=== PATIENT | female | born 1990 | race Caucasian/White ===

== ENCOUNTER 2018-03-06 12:10 | Outpatient (CLI) | payer MEDICAID | END 2018-03-06 13:45 | disposition home or self-care (01) | LOC: OBT 12:10 → L-D 12:10 → OBT 13:45 | DX: O36.8330 Maternal care for abnormalities of the fetal heart rate or rhythm, third trimester, not applicable or unspecified (principal); O28.0 Abnormal hematological finding on antenatal screening of mother; Z3A.30 30 weeks gestation of pregnancy | CPT/HCPCS: 76818 ==

== ENCOUNTER 2018-03-09 09:33 | Outpatient (CLI) | payer MEDICAID | END 2018-03-09 11:07 | disposition home or self-care (01) | LOC: OBT 09:33 → L-D 09:33 → OBT 11:07 | DX: O28.8 Other abnormal findings on antenatal screening of mother (principal); Z3A.30 30 weeks gestation of pregnancy | CPT/HCPCS: 76818 ==

== ENCOUNTER 2018-04-21 23:47 | Outpatient (CLI) | payer MEDICAID ==
[2018-04-22 00:59] LABS: RUPTURE FETAL MEMBRANES NEGATIVE (NEGATIVE)
== END 2018-04-22 01:24 | disposition home or self-care (01) ==
LOC: OBT 23:47 → L-D 23:50
DX: O28.9 Unspecified abnormal findings on antenatal screening of mother (principal); Z3A.37 37 weeks gestation of pregnancy
CPT/HCPCS: 76818; 84112

== ENCOUNTER 2018-05-02 10:33 | Inpatient (IN) | payer MEDICAID ==
[2018-05-02] MEDS ORDERED: IBUPROFEN 600 MG TAB PO (11:00)
[2018-05-02] MEDS ORDERED: LIDOCAINE 1% (MPF) 30 ML INJ INJ (11:00)
[2018-05-02] MEDS ORDERED: CARBOPROST 250 MCG INJ IM (11:00)
[2018-05-02] MEDS ORDERED: METHYLERGONOVINE 0.2 MG INJ IM (11:00)
[2018-05-02] MEDS ORDERED: MISOPROSTOL 200 MCG TAB PR (11:00)
[2018-05-02] MEDS ORDERED: OXYTOCIN 30 UNITS/LR 500 ML IV (11:00)
[2018-05-02 11:39] LABS: ADD MAN DIFF? NO
[2018-05-02 11:49] LABS: BASOPHIL # 0.1 10^3/ul (0.0-0.1); BASOPHILS % 0.6 % (0.0-2.0); EOSINOPHILS % 0.4 % (0.0-7.0); HEMATOCRIT 36.8 % (37.0-47.0); HEMOGLOBIN 11.8 g/dl (12.0-16.0); LYMPHOCYTES # 0.9 10^3/ul (0.8-2.9); LYMPHOCYTES % 10.8 % (15.0-51.0); MEAN CORPUSCULAR HEMOGLOBIN 26.5 pg (29.0-33.0); MEAN CORPUSCULAR HGB CONC 32.1 g/dl (32.0-37.0); MEAN CORPUSCULAR VOLUME 82.5 fl (82.0-101.0); MEAN PLATELET VOLUME 9.4 fl (7.4-10.4); MONOCYTE # 0.7 10^3/ul (0.3-0.9); MONOCYTES % 8.5 % (0.0-11.0); NEUTROPHIL # 6.1 10^3/ul (1.6-7.5); NEUTROPHILS % 77.5 % (39.0-77.0); PLATELET COUNT 367 10^3/UL (140-415); RED BLOOD COUNT 4.46 10^6/ul (4.20-5.40); RED CELL DISTRIBUTION WIDTH 13.6 % (11.5-14.5)
[2018-05-02 11:49] LABS: WHITE BLOOD COUNT 7.9 10^3/ul (4.8-10.8)
[2018-05-02 12:07] LABS: INR 0.85; PROTIME 11.7 Sec (11.9-14.9); PT RATIO 0.9
[2018-05-02 12:08] LABS: PARTIAL THROMBOPLASTIN TIME 28.5 Sec (23.0-35.0)
[2018-05-02] MEDS: MISOPROSTOL 50 MCG CAPSULE PO ×3 (13:59→22:42)
[2018-05-02 15:41] LABS: RAPID PLASMA REAGIN REACTIVE (NR)
[2018-05-02] MEDS: LACTATED RINGER'S 1,000 ML IV ×2 (16:20→18:21)
[2018-05-02] MEDS: CEPHALEXIN 500 MG CAP PO (18:42)
[2018-05-03] MEDS: LACTATED RINGER'S 1,000 ML IV ×3 (02:44→13:20)
[2018-05-03] MEDS: MISOPROSTOL 50 MCG CAPSULE PO ×5 (02:45→17:00)
[2018-05-03] MEDS: GUAIFENESIN/DM 5ML CUP PO ×2 (11:06→15:08)
[2018-05-03] MEDS: CEPHALEXIN 500 MG CAP PO (13:20)
[2018-05-03] MEDS: OXYTOCIN 30 UNITS/LR 500 ML IV ×3 (15:29→18:16)
[2018-05-03] MEDS: BUTORPHANOL 2 MG INJ IV (16:56)
[2018-05-03] MEDS ORDERED: ONDANSETRON 4 MG INJ IV (18:30)
[2018-05-03] MEDS ORDERED: DIPHENHYDRAMINE 25 MG CAP PO (18:30)
[2018-05-03] MEDS ORDERED: NACL 0.9% 3 ML SYG IV (18:30)
[2018-05-03] MEDS ORDERED: MISOPROSTOL 200 MCG TAB PR (18:30)
[2018-05-03] MEDS ORDERED: ZOLPIDEM 5 MG TAB PO (18:30)
[2018-05-03] MEDS: IBUPROFEN 600 MG TAB PO (18:30)
[2018-05-03] MEDS ORDERED: OXYTOCIN 30 UNITS/LR 500 ML IV (18:30)
[2018-05-03] MEDS ORDERED: CARBOPROST 250 MCG INJ IM (18:30)
[2018-05-03 19:31] LABS: HEMATOCRIT 38.7 % (37.0-47.0); HEMOGLOBIN 12.2 g/dl (12.0-16.0)
[2018-05-03] MEDS: SENNA/DOCUSATE NA (8.6MG/50MG) TAB PO (21:22)
[2018-05-03] MEDS: WITCH HAZEL/GLYCERIN PAD PR (21:22)
[2018-05-04] MEDS: IBUPROFEN 600 MG TAB PO ×5 (00:16→23:54)
[2018-05-04] MEDS: OXYTOCIN 30 UNITS/LR 500 ML IV (00:18)
[2018-05-04] MEDS: SENNA/DOCUSATE NA (8.6MG/50MG) TAB PO ×2 (08:53→21:29)
[2018-05-04 08:59] LABS: ADD MAN DIFF? NO
[2018-05-04 09:01] LABS: WHITE BLOOD COUNT 9.9 10^3/ul (4.8-10.8)
[2018-05-04 09:01] LABS: BASOPHILS % 0.2 % (0.0-2.0); EOSINOPHILS # 0.1 10^3/ul (0.0-0.5); EOSINOPHILS % 0.7 % (0.0-7.0); HEMATOCRIT 36.1 % (37.0-47.0); HEMOGLOBIN 11.4 g/dl (12.0-16.0); LYMPHOCYTES # 1.5 10^3/ul (0.8-2.9); LYMPHOCYTES % 15.4 % (15.0-51.0); MEAN CORPUSCULAR HEMOGLOBIN 26.4 pg (29.0-33.0); MEAN CORPUSCULAR HGB CONC 31.6 g/dl (32.0-37.0); MEAN CORPUSCULAR VOLUME 83.6 fl (82.0-101.0); MEAN PLATELET VOLUME 9.3 fl (7.4-10.4); MONOCYTE # 0.8 10^3/ul (0.3-0.9); MONOCYTES % 8.3 % (0.0-11.0); NEUTROPHIL # 7.4 10^3/ul (1.6-7.5); NEUTROPHILS % 74.3 % (39.0-77.0); PLATELET COUNT 346 10^3/UL (140-415); RED BLOOD COUNT 4.32 10^6/ul (4.20-5.40)
[2018-05-05] MEDS: IBUPROFEN 600 MG TAB PO ×2 (05:42→11:43)
[2018-05-05] MEDS: SENNA/DOCUSATE NA (8.6MG/50MG) TAB PO (08:04)
[2018-05-05] MEDS: HYDROCODONE/APAP (5/325) TAB PO (08:04)
[2018-05-05] MEDS: LANOLIN HPA 1 PKT TOP (08:04)
[2018-05-05 17:56] LABS: FLUORESCENT TREPONEMAL AB REACTIVE (NON-REACTIVE)
[2018-05-08 17:31] LABS: FLUORESCENT TREPONEMAL AB REACTIVE (NON-REACTIVE)
== END 2018-05-05 17:27 | disposition home or self-care (01) | DRG 806 ==
LOC: PP1 05-03 20:22 → L-D 10:33
PROVIDERS: Obstetrics & Gynecology
PROC: 4A1HXCZ Monitoring of Products of Conception, Cardiac Rate, External Approach (ICD-10-PCS; 2018-05-02 10:00)
PROC: 3E0P7GC Introduction of Other Therapeutic Substance into Female Reproductive, Via Natural or Artificial Opening (ICD-10-PCS; 2018-05-02 10:00)
DX: O36.5930 Maternal care for other known or suspected poor fetal growth, third trimester, not applicable or unspecified (principal); O41.03X0 Oligohydramnios, third trimester, not applicable or unspecified; Z37.0 Single live birth; O23.43 Unspecified infection of urinary tract in pregnancy, third trimester; O35.8XX0 Maternal care for other (suspected) fetal abnormality and damage, not applicable or unspecified; O70.0 First degree perineal laceration during delivery; Z3A.38 38 weeks gestation of pregnancy
CPT/HCPCS: 76815; 85014; 85018; 85025; 85610; 85730; 86592; 86850; 86900; 86901; 87285; 99464